=== PATIENT | female | born 1955 | race Caucasian/White ===

== ENCOUNTER 2022-07-12 08:00 | Outpatient (RCR) | payer MEDICAID, SELFPAY ==
[2022-07-04] MEDS: Normal Saline Flush 10 ML SYR IVP (08:55)
[2022-07-04 09:01] LABS: Abs Immature Grans 0.04 10^3/uL (0.0-0.06); Absolute Basophil Count 0.04 10^3/uL (0.0-0.2); Absolute Eosinophil Count 0.31 10^3/uL (0.0-0.7); Absolute Lymphocyte Count 1.49 10^3/uL (1.2-3.4); Absolute Monocyte Count 1.03 10^3/uL (0.1-0.8); Absolute Neutrophil Count 7.44 10^3/uL (1.2-6.7); Basophils % 0.4; HCT 31.2 % (36.0-46.0); HGB 10.3 g/dL (11.2-15.7); Immature Grans % 0.4; Lymphocytes % 14.4; MCH 34.1 pg (27.0-33.0); MCV 103 fL (80-95); MPV 10.5 fL (8.0-11.0); Neutrophils % 71.8; Platelet Count 374 10^3/uL (130-400); RBC 3.02 10^6/uL (3.93-5.22); RDW 13.3 % (11.7-14.6); RDW-SD 51.5 fL; Reticulocyte 2.7 % (0.5-2.4); WBC 10.35 10^3/uL (4.4-10.8)
[2022-07-04 09:31] LABS: Iron 72 ug/dL (50-170); Total Iron Binding Capacity 450 ug/dL (250-450); Transferrin Sat 16 % (15-50)
[2022-07-04 09:43] LABS: ALT 41 U/L (14-59); AST 29 U/L (15-37); Alkaline Phosphatase 164 U/L (46-116); Anion Gap 9.2 mmol/L (3-11); Bilirubin, Total 0.3 mg/dL (0.2-1.0); CO2 25.8 mmol/L (21.0-32.0); CREATININE 1.2 mg/dL (0.55-1.02); Calcium 9.5 mg/dL (8.5-10.1); Chloride 98 mmol/L (98-107); Estimated GFR 49.92 (mL/min/1.73m2); Glucose 103 mg/dL (74-106); Magnesium 2.4 mg/dL (1.8-2.4); Potassium 4.7 mmol/L (3.5-5.1); Sodium 133 mmol/L (136-145); Vitamin B12 592 pg/mL (193-986)
[2022-07-04 09:56] LABS: Folate > 20.0 ng/mL (8.6-20.0)
[2022-07-04 09:57] LABS: BUN 89 mg/dL (7-18)
[2022-07-12] MEDS: Normal Saline Flush 10 ML SYR IVP (08:27)
[2022-07-12 08:34] LABS: Abs Immature Grans 0.02 10^3/uL (0.0-0.06); Absolute Basophil Count 0.05 10^3/uL (0.0-0.2); Absolute Eosinophil Count 0.35 10^3/uL (0.0-0.7); Absolute Lymphocyte Count 1.27 10^3/uL (1.2-3.4); Absolute Monocyte Count 0.84 10^3/uL (0.1-0.8); Absolute Neutrophil Count 7.33 10^3/uL (1.2-6.7); Basophils % 0.5; Eosinophils % 3.5; HCT 29.4 % (36.0-46.0); HGB 9.7 g/dL (11.2-15.7); Immature Grans % 0.2; Lymphocytes % 12.9; MCH 33.8 pg (27.0-33.0); MCV 102 fL (80-95); MPV 9.8 fL (8.0-11.0); Monocytes % 8.5; Neutrophils % 74.4; Platelet Count 341 10^3/uL (130-400); RBC 2.87 10^6/uL (3.93-5.22); RDW 13.5 % (11.7-14.6); RDW-SD 50.1 fL; WBC 9.86 10^3/uL (4.4-10.8)
[2022-07-12 08:49] LABS: ALT 26 U/L (14-59); AST 22 U/L (15-37); Albumin 3.5 g/dL (3.4-5.0); Alkaline Phosphatase 151 U/L (46-116); Anion Gap 11.3 mmol/L (3-11); BUN 54 mg/dL (7-18); Bilirubin, Total 0.2 mg/dL (0.2-1.0); CO2 23.7 mmol/L (21.0-32.0); CREATININE 1.4 mg/dL (0.55-1.02); Calcium 8.9 mg/dL (8.5-10.1); Chloride 100 mmol/L (98-107); Estimated GFR 41.49 (mL/min/1.73m2); Glucose 105 mg/dL (74-106); Magnesium 2.2 mg/dL (1.8-2.4); Potassium 4.5 mmol/L (3.5-5.1); Sodium 135 mmol/L (136-145); Total Protein 7.1 g/dL (6.4-8.2)
== END 2022-07-13 23:59 | disposition home or self-care (01) ==
LOC: INF 08:00
PROVIDERS: PCP Registered Nurse; Visit Provider Internal Medicine Hematology & Oncology
DX: Z45.2 Encounter for adjustment and management of vascular access device (principal); C02.9 Malignant neoplasm of tongue, unspecified; D53.9 Nutritional anemia, unspecified
CPT/HCPCS: 36591; 80053; 82607; 82746; 83540; 83550; 83735; 85025; 85045

== ENCOUNTER 2022-08-09 03:24 | Outpatient (RCR) | payer MEDICAID, SELFPAY ==
[2022-07-18] MEDS: Normal Saline Flush 10 ML SYR IVP (09:28)
[2022-07-18 09:39] LABS: Abs Immature Grans 0.03 10^3/uL (0.0-0.06); Absolute Basophil Count 0.03 10^3/uL (0.0-0.2); Absolute Eosinophil Count 0.19 10^3/uL (0.0-0.7); Absolute Lymphocyte Count 0.65 10^3/uL (1.2-3.4); Absolute Monocyte Count 0.44 10^3/uL (0.1-0.8); Absolute Neutrophil Count 8.14 10^3/uL (1.2-6.7); Basophils % 0.3; HCT 29.1 % (36.0-46.0); HGB 9.6 g/dL (11.2-15.7); Immature Grans % 0.3; Lymphocytes % 6.9; MCH 34.3 pg (27.0-33.0); MCV 104 fL (80-95); MPV 9.7 fL (8.0-11.0); Monocytes % 4.6; Neutrophils % 85.9; Platelet Count 330 10^3/uL (130-400); WBC 9.48 10^3/uL (4.4-10.8)
[2022-07-18 09:56] LABS: ALT 31 U/L (14-59); AST 31 U/L (15-37); Albumin 3.3 g/dL (3.4-5.0); Alkaline Phosphatase 186 U/L (46-116); Anion Gap 7.5 mmol/L (3-11); BUN 50 mg/dL (7-18); Bilirubin, Total 0.3 mg/dL (0.2-1.0); CO2 26.5 mmol/L (21.0-32.0); CREATININE 1.5 mg/dL (0.55-1.02); Calcium 8.9 mg/dL (8.5-10.1); Chloride 103 mmol/L (98-107); Glucose 167 mg/dL (74-106); Magnesium 2.2 mg/dL (1.8-2.4); Potassium 4.5 mmol/L (3.5-5.1); Sodium 137 mmol/L (136-145); Total Protein 6.9 g/dL (6.4-8.2)
[2022-07-25 09:28] LABS: Abs Immature Grans 0.01 10^3/uL (0.0-0.06); Absolute Basophil Count 0.04 10^3/uL (0.0-0.2); Absolute Eosinophil Count 0.15 10^3/uL (0.0-0.7); Absolute Lymphocyte Count 0.67 10^3/uL (1.2-3.4); Absolute Monocyte Count 0.34 10^3/uL (0.1-0.8); Basophils % 0.8; Eosinophils % 3.2; HCT 28.3 % (36.0-46.0); HGB 9.2 g/dL (11.2-15.7); Immature Grans % 0.2; Lymphocytes % 14.2; MCHC 32.5 % (32.0-36.0); MCV 108 fL (80-95); MPV 9.8 fL (8.0-11.0); Monocytes % 7.2; Neutrophils % 74.4; Platelet Count 278 10^3/uL (130-400); RBC 2.63 10^6/uL (3.93-5.22); RDW 14.7 % (11.7-14.6); RDW-SD 55.8 fL; WBC 4.71 10^3/uL (4.4-10.8)
[2022-07-25] MEDS: Normal Saline Flush 10 ML SYR IVP (09:31)
[2022-07-25 09:44] LABS: ALT 24 U/L (14-59); AST 22 U/L (15-37); Albumin 3.2 g/dL (3.4-5.0); Alkaline Phosphatase 172 U/L (46-116); Anion Gap 8.7 mmol/L (3-11); BUN 47 mg/dL (7-18); Bilirubin, Total 0.4 mg/dL (0.2-1.0); CO2 26.3 mmol/L (21.0-32.0); CREATININE 1.2 mg/dL (0.55-1.02); Calcium 8.8 mg/dL (8.5-10.1); Chloride 104 mmol/L (98-107); Estimated GFR 49.92 (mL/min/1.73m2); Glucose 143 mg/dL (74-106); Magnesium 2.2 mg/dL (1.8-2.4); Potassium 4.4 mmol/L (3.5-5.1); Sodium 139 mmol/L (136-145); Total Protein 6.6 g/dL (6.4-8.2)
[2022-08-02] MEDS: Normal Saline Flush 10 ML SYR IVP (11:11)
[2022-08-02 11:19] LABS: Abs Immature Grans 0.02 10^3/uL (0.0-0.06); Absolute Basophil Count 0.03 10^3/uL (0.0-0.2); Absolute Eosinophil Count 0.11 10^3/uL (0.0-0.7); Absolute Lymphocyte Count 0.57 10^3/uL (1.2-3.4); Absolute Neutrophil Count 3.41 10^3/uL (1.2-6.7); Basophils % 0.6; Eosinophils % 2.4; HCT 27.9 % (36.0-46.0); HGB 9.4 g/dL (11.2-15.7); Immature Grans % 0.4; Lymphocytes % 12.3; MCH 35.2 pg (27.0-33.0); MCHC 33.7 % (32.0-36.0); MCV 105 fL (80-95); MPV 9.8 fL (8.0-11.0); Monocytes % 10.8; Neutrophils % 73.5; Platelet Count 245 10^3/uL (130-400); RBC 2.67 10^6/uL (3.93-5.22); RDW 15.4 % (11.7-14.6); RDW-SD 57.8 fL; WBC 4.64 10^3/uL (4.4-10.8)
[2022-08-02 11:35] LABS: ALT 21 U/L (14-59); AST 21 U/L (15-37); Albumin 3.3 g/dL (3.4-5.0); Alkaline Phosphatase 141 U/L (46-116); Anion Gap 6.2 mmol/L (3-11); BUN 41 mg/dL (7-18); Bilirubin, Total 0.3 mg/dL (0.2-1.0); CO2 27.8 mmol/L (21.0-32.0); CREATININE 1.2 mg/dL (0.55-1.02); Chloride 104 mmol/L (98-107); Estimated GFR 49.92 (mL/min/1.73m2); Glucose 113 mg/dL (74-106); Magnesium 2.2 mg/dL (1.8-2.4); Potassium 4.8 mmol/L (3.5-5.1); Sodium 138 mmol/L (136-145); Total Protein 6.9 g/dL (6.4-8.2)
[2022-08-09] MEDS: Normal Saline Flush 10 ML SYR IVP (08:48)
[2022-08-09 08:53] LABS: Abs Immature Grans 0.01 10^3/uL (0.0-0.06); Absolute Basophil Count 0.04 10^3/uL (0.0-0.2); Absolute Eosinophil Count 0.13 10^3/uL (0.0-0.7); Absolute Lymphocyte Count 0.42 10^3/uL (1.2-3.4); Absolute Monocyte Count 0.41 10^3/uL (0.1-0.8); Absolute Neutrophil Count 2.94 10^3/uL (1.2-6.7); Eosinophils % 3.3; HCT 24.8 % (36.0-46.0); HGB 7.9 g/dL (11.2-15.7); Immature Grans % 0.3; Lymphocytes % 10.6; MCH 33.9 pg (27.0-33.0); MCHC 31.9 % (32.0-36.0); MCV 106 fL (80-95); MPV 9.7 fL (8.0-11.0); Monocytes % 10.4; Neutrophils % 74.4; Platelet Count 185 10^3/uL (130-400); RBC 2.33 10^6/uL (3.93-5.22); RDW 16.4 % (11.7-14.6); RDW-SD 62.1 fL; WBC 3.95 10^3/uL (4.4-10.8)
[2022-08-09 09:08] LABS: ALT 20 U/L (14-59); AST 20 U/L (15-37); Albumin 3.3 g/dL (3.4-5.0); Alkaline Phosphatase 145 U/L (46-116); Anion Gap 7.7 mmol/L (3-11); BUN 50 mg/dL (7-18); Bilirubin, Total 0.3 mg/dL (0.2-1.0); CO2 27.3 mmol/L (21.0-32.0); CREATININE 1.2 mg/dL (0.55-1.02); Calcium 8.8 mg/dL (8.5-10.1); Chloride 104 mmol/L (98-107); Estimated GFR 49.92 (mL/min/1.73m2); Glucose 143 mg/dL (74-106); Magnesium 2.3 mg/dL (1.8-2.4); Potassium 4.5 mmol/L (3.5-5.1); Sodium 139 mmol/L (136-145); Total Protein 6.8 g/dL (6.4-8.2)
== END 2022-08-13 23:59 | disposition home or self-care (01) ==
LOC: INF 03:24
PROVIDERS: PCP Registered Nurse; Visit Provider Internal Medicine Hematology & Oncology
DX: C02.9 Malignant neoplasm of tongue, unspecified (principal); Z45.2 Encounter for adjustment and management of vascular access device
CPT/HCPCS: 36591; 80053; 83735; 85025

== ENCOUNTER 2022-09-12 02:40 | Outpatient (RCR) | payer MEDICAID, SELFPAY ==
[2022-08-19] MEDS: Normal Saline Flush 10 ML SYR IVP (08:47)
[2022-08-19 09:07] LABS: Abs Immature Grans 0.01 10^3/uL (0.0-0.06); Absolute Basophil Count 0.02 10^3/uL (0.0-0.2); Absolute Eosinophil Count 0.07 10^3/uL (0.0-0.7); Absolute Lymphocyte Count 0.42 10^3/uL (1.2-3.4); Absolute Neutrophil Count 1.61 10^3/uL (1.2-6.7); Basophils % 0.7; Eosinophils % 2.4; HCT 22.3 % (36.0-46.0); HGB 7.3 g/dL (11.2-15.7); Immature Grans % 0.3; Lymphocytes % 14.3; MCH 34.9 pg (27.0-33.0); MCHC 32.7 % (32.0-36.0); MCV 107 fL (80-95); MPV 10.1 fL (8.0-11.0); Monocytes % 27.3; RBC 2.09 10^6/uL (3.93-5.22); RDW 17.2 % (11.7-14.6); RDW-SD 66.2 fL; WBC 2.93 10^3/uL (4.4-10.8)
[2022-08-19 09:24] LABS: ALT 43 U/L (14-59); AST 53 U/L (15-37); Albumin 2.8 g/dL (3.4-5.0); Alkaline Phosphatase 244 U/L (46-116); Anion Gap 7.4 mmol/L (3-11); BUN 46 mg/dL (7-18); Bilirubin, Total 0.4 mg/dL (0.2-1.0); CO2 27.6 mmol/L (21.0-32.0); CREATININE 1.5 mg/dL (0.55-1.02); Calcium 8.9 mg/dL (8.5-10.1); Chloride 101 mmol/L (98-107); Glucose 146 mg/dL (74-106); Magnesium 2.4 mg/dL (1.8-2.4); Potassium 4.6 mmol/L (3.5-5.1); Sodium 136 mmol/L (136-145); Total Protein 7.1 g/dL (6.4-8.2)
[2022-08-19 09:26] LABS: Basophilic Stippling Present; Diff Comment Diff Reviewed; Hypochromasia 2+; Macrocytosis 2+; Platelet Count 291 10^3/uL (130-400)
[2022-08-22] MEDS: Normal Saline Flush 10 ML SYR IVP (09:00)
[2022-08-22 09:16] LABS: Abs Immature Grans 0.05 10^3/uL (0.0-0.06); Absolute Basophil Count 0.02 10^3/uL (0.0-0.2); Absolute Eosinophil Count 0.07 10^3/uL (0.0-0.7); Absolute Lymphocyte Count 0.44 10^3/uL (1.2-3.4); Absolute Monocyte Count 0.57 10^3/uL (0.1-0.8); Absolute Neutrophil Count 2.25 10^3/uL (1.2-6.7); Basophils % 0.6; Eosinophils % 2.1; HCT 23.1 % (36.0-46.0); HGB 7.7 g/dL (11.2-15.7); Immature Grans % 1.5; Lymphocytes % 12.9; MCH 34.5 pg (27.0-33.0); MCHC 33.3 % (32.0-36.0); MCV 104 fL (80-95); MPV 9.8 fL (8.0-11.0); Monocytes % 16.8; Neutrophils % 66.1; Platelet Count 392 10^3/uL (130-400); RBC 2.23 10^6/uL (3.93-5.22); RDW-SD 63.7 fL
[2022-08-22 09:36] LABS: ALT 38 U/L (14-59); AST 32 U/L (15-37); Albumin 2.7 g/dL (3.4-5.0); Alkaline Phosphatase 265 U/L (46-116); Anion Gap 10.6 mmol/L (3-11); BUN 38 mg/dL (7-18); Bilirubin, Total 0.3 mg/dL (0.2-1.0); CO2 27.4 mmol/L (21.0-32.0); CREATININE 1.3 mg/dL (0.55-1.02); Calcium 9.1 mg/dL (8.5-10.1); Chloride 98 mmol/L (98-107); Estimated GFR 45.35 (mL/min/1.73m2); Glucose 109 mg/dL (74-106); Potassium 4.4 mmol/L (3.5-5.1); Sodium 136 mmol/L (136-145); Total Protein 7.2 g/dL (6.4-8.2)
[2022-08-25] MEDS: Normal Saline Flush 10 ML SYR IVP (12:48)
[2022-08-25 12:53] LABS: Abs Immature Grans 0.03 10^3/uL (0.0-0.06); Absolute Basophil Count 0.01 10^3/uL (0.0-0.2); Absolute Lymphocyte Count 0.48 10^3/uL (1.2-3.4); Absolute Monocyte Count 0.68 10^3/uL (0.1-0.8); Absolute Neutrophil Count 2.63 10^3/uL (1.2-6.7); Basophils % 0.3; Eosinophils % 2.5; HCT 23.3 % (36.0-46.0); HGB 7.7 g/dL (11.2-15.7); Immature Grans % 0.8; Lymphocytes % 12.2; MCH 35.2 pg (27.0-33.0); MCV 106 fL (80-95); MPV 9.5 fL (8.0-11.0); Monocytes % 17.3; Neutrophils % 66.9; Platelet Count 382 10^3/uL (130-400); RBC 2.19 10^6/uL (3.93-5.22); RDW 17.5 % (11.7-14.6); RDW-SD 66.8 fL; WBC 3.93 10^3/uL (4.4-10.8)
[2022-08-25 13:08] LABS: ALT 25 U/L (14-59); AST 20 U/L (15-37); Albumin 2.6 g/dL (3.4-5.0); Alkaline Phosphatase 260 U/L (46-116); Anion Gap 5.6 mmol/L (3-11); BUN 36 mg/dL (7-18); Bilirubin, Total 0.2 mg/dL (0.2-1.0); CO2 29.4 mmol/L (21.0-32.0); CREATININE 1.7 mg/dL (0.55-1.02); Calcium 8.7 mg/dL (8.5-10.1); Chloride 99 mmol/L (98-107); Estimated GFR 32.87 (mL/min/1.73m2); Glucose 119 mg/dL (74-106); Potassium 4.1 mmol/L (3.5-5.1); Sodium 134 mmol/L (136-145); Total Protein 6.8 g/dL (6.4-8.2)
[2022-09-12] MEDS: Normal Saline Flush 10 ML SYR IVP (13:40)
[2022-09-12 14:12] LABS: Abs Immature Grans 0.02 10^3/uL (0.0-0.06); Absolute Basophil Count 0.05 10^3/uL (0.0-0.2); Absolute Eosinophil Count 0.18 10^3/uL (0.0-0.7); Absolute Lymphocyte Count 0.84 10^3/uL (1.2-3.4); Absolute Monocyte Count 0.73 10^3/uL (0.1-0.8); Absolute Neutrophil Count 5.53 10^3/uL (1.2-6.7); Basophils % 0.7; Eosinophils % 2.4; HCT 29.9 % (36.0-46.0); HGB 9.7 g/dL (11.2-15.7); Immature Grans % 0.3; Lymphocytes % 11.4; MCH 35.9 pg (27.0-33.0); MCHC 32.4 % (32.0-36.0); MCV 111 fL (80-95); MPV 10.1 fL (8.0-11.0); Monocytes % 9.9; Neutrophils % 75.3; RDW 18.2 % (11.7-14.6); RDW-SD 74.4 fL; WBC 7.35 10^3/uL (4.4-10.8)
[2022-09-12 14:24] LABS: Diff Comment Diff Reviewed; Macrocytosis 2+; Platelet Count 384 10^3/uL (130-400); Polychromasia Present
[2022-09-12 14:26] LABS: ALT 18 U/L (14-59); AST 23 U/L (15-37); Albumin 3.3 g/dL (3.4-5.0); Alkaline Phosphatase 155 U/L (46-116); Anion Gap 7.5 mmol/L (3-11); BUN 34 mg/dL (7-18); Bilirubin, Total 0.3 mg/dL (0.2-1.0); CO2 29.5 mmol/L (21.0-32.0); CREATININE 1.3 mg/dL (0.55-1.02); Calcium 9.6 mg/dL (8.5-10.1); Chloride 103 mmol/L (98-107); Estimated GFR 45.35 (mL/min/1.73m2); Glucose 122 mg/dL (74-106); Magnesium 2.1 mg/dL (1.8-2.4); Potassium 4.2 mmol/L (3.5-5.1); Sodium 140 mmol/L (136-145); Total Protein 7.2 g/dL (6.4-8.2)
== END 2022-09-13 23:59 | disposition home or self-care (01) ==
LOC: INF 02:40
PROVIDERS: PCP Registered Nurse; Visit Provider Internal Medicine Hematology & Oncology
DX: C02.9 Malignant neoplasm of tongue, unspecified (principal); Z45.2 Encounter for adjustment and management of vascular access device
CPT/HCPCS: 36591; 80053; 86850; 86900; 86901; 83735; 85025

== ENCOUNTER 2022-09-27 00:43 | Outpatient (CLI) | payer MEDICARE, MEDICAID, SELFPAY ==
--- NOTE | 2022-09-27 | DI.RAD_ITS ---
Exam(s) RF MODIFIED SPEECH BA SWALLOW TECHNIQUE: Modified barium swallow was performed in conjunction with speech pathology. CONTRAST MATERIAL: Oral barium Oral water soluble contrast was administered. COMPARISON: No exams were available for comparison FINDINGS: Fluoroscopy provided during modified barium swallow performed by the speech therapist. Please refer to that report for details. IMPRESSION: Total fluoroscopy time was 109 seconds. RADIATION DOSE DELIVERED: garland Christiansen=150 mGy
[2022-09-27] MEDS: Barium Sulfate Oral Paste 40% W/V 230 ML TUBE 10 ML PO (14:30)
[2022-09-27] MEDS: Barium Sulfate 81% w/w for Oral Suspension 148 GM BTL 70 GM PO (14:31)
[2022-09-27] MEDS: Barium Sulfate 40% W/V 240 ML BTL 10 ML PO (14:38)
--- NOTE | 2022-09-27 14:45 | ST.MBS ---
Date of Service Date of service: 09/27/22 Time of Service: 14:00 Modified Barium Swallow Study Findings: Video fluoroscopic Swallowing Evaluation (VFSE) / Modified Barium Swallow Study (MBSS) Speech Language Pathology Report Patient referred for VFSE/MBSS from Dr. Aj Garcia MD ([facility]) given oral-pharyngeal dysphagia after H/N surgery and chemoradiation. HPI & Patient report of function: Patient is a 67 year old F s/p R lateral partial glossectomy with FOM resection, marginal mandibulectomy, pec major flap, R MRND for squamous cell carcinoma, who was planned for adjuvent radiotherapy, but found to have regional recurrence on CT when planning for RT, then treatment plan was changed and patient underwent definitive chemoradiation completed 08/19/22. Patient was seen by [facility] ENTERTAINMENT DIRECTOR Radha Millard for clinical swallow evaluation on 09/12/22 and noted with consistent s/sx aspiration to thin liquids on exam. See this report dated 09/12/22 for more details including speech testing. This date patient reports minimal residual oral or neck pain from radiation or surgery, but reports new L head pain radiating down into throat. She is scheduled for CT scan in [place]. She also reports improved swallow function with less coughing in recent weeks. PMHx: Tongue Cancer Anemia Metabolic acidosis CHF History of tobacco use IMPRESSIONS: Moderate-severe chronic oropharyngeal dysphagia in setting of oral reconstructive surgery and adrien-glossectomy, and radiation effects. Swallow safety is impaired; swallow efficiency is impaired. Based on MBSiMP scoring data and measures of oral-pharyngeal movement patient swallow function is quite poor, though functionally she is able to safely tolerate liquids and thick purees fairly safely. Despite minimal hyoid movement, she has relatively preserved pharyngeal stripping wave and UES distension (though some mild hypertrophy is noted). Airway protection for thin liquids is also maintained and she is able to clear majority of liquid bolus from mouth with increased inertia of larger sip sizes (~10ML) and some preserved lingual stripping motion. With small sip sizes, patient relies on posterior head tilt for A/P transit and oral phase is much more labored and inefficient. Aspiration occurred with thin liquids, but only when taken as liquid wash to clear puree residue. It appears that the presence of prior vallecular residue alters liquid bolus flow in such a way that makes laryngeal penetration/aspiration occur upon swallow initiation. In addition to the above description, swallow function also characterized by mild delayed pharyngeal onset, reduced epiglottic inversion, poor tongue base retraction, and oral as well as vallecular residue especially as viscosity increases. When drinking liquids with baseline feeding behaviors in place, she appears with spontaneous small chin tuck posture which may also improve her airway protection with liquids. Mild hypertrophy noted of CP but does not appear to impeded bolus flow - minimal pyriform sinus residue. ? Clinical Indicator(s) of Prandial/Postprandial Aspiration include: Cough Patient appears to be at moderate risk for potential aspiration PNA and/or pulmonary compromise and moderate risk for malnutrition, moderate risk for dehydration. Diet modification is indicated; non-oral nutrition is indicated, but patient is safe to begin increasing PO intake at home of liquids and slick purees or very soft solids with added sauces/gravies. Swallow prognosis is fair given: Positive prognostic factors: Motivation, Cognitive status, Effectiveness of trialed compensatory strategies, Negative prognostic factors: Severity, Relative dose of Chemotherapy and/or radiation treatment, Surgical/anatomical factors, and pending patient/caregiver training in risk management as outlined, including use of compensatory strategies. Patient appears to be a good candidate for behavioral swallow rehabilitation. Patient was encouraged to increase oral intake as tolerated for liquids and slick purees or very soft/moist solids per the following recommendations for risk management: RECOMMENDATIONS: Diet Texture Recommendation:? IDDSI LEVEL SOLIDS 7-Regular/Easy to Chew Solids (soft mashable with added sauce/gravy) 5-Minced & Moist Solids 4-Pureed Solids LIQUIDS 0-Thin Liquids Please see further details at?www.iddsi.orghttp://www.iddsi.org/ MEDICATIONS Crushed, as able with 4-Puree or via enteral feeding Do not alter medications (e.g., cut)? without advice from your MD or pharmacist. Risk Management Strategies:? Behavioral reflux precautions, including upright position during + 90 mins after meals. Small bites, approx [id number] Multiple swallows per bolus to encourage clearance of pharyngeal stasis/residue Avoid use of liquid wash to clear residue unless multip reswallow attempts have been completed, and if using liquid wash, small sip size should be maintained. Tuck chin slightly with liquids. (Patient appears to complete this spontaneously at baseline. Control risk factors for aspiration pneumonia via (a) thorough oral hygiene & (b) maintaining physical mobility as tolerated PLAN: Therapy: Recommend subsequent outpatient session with ENTERTAINMENT DIRECTOR to review results of today's exam and develop treatment plan as appropriate. May consider the following: Targeted Oropharyngeal Exercise per treating ENTERTAINMENT DIRECTOR, Further Compensatory Strategy Training, Further Training/Education in Risk Management, Further Counseling re: Options for maintaining quality of life in context of dysphagia presentation. Goals: Defer to treating clinician Follow-up exam: Recommend repeat VFSE/MBSS PRN per treating clinician. ----- OBJECTIVE Videofluoroscopic Swallow Evaluation (VFSE/MBSS) was conducted in the lateral projection by Speech-Language Pathologist, in collaboration with Radiologist, to evaluate oropharyngeal swallow function. Anatomic view under fluoroscopy: Other noting evidence of oral and pharyngeal reconstruction. Altered epiglottic form. PO Barium Contrast Trials Oral barium water-soluble contrast was administered as follows: IDDSI Level 0 Varibar thin liquid (40% w/v) IDDSI Level 2 Varibar nectar thick/mildly thick liquid (40% w/v) IDDSI Level 4 Varibar pudding/pureed/extremely thick (40% w/v) Solid trials not initiated due to persistent pharyngeal stasis noted with puree texture. MBSImP Component Scores: COMPONENT Scale SCORE 1 Lip closure (0-4) 2 Resulted in escape from interlabial space or lateral juncture, but no extension beyond vermilion border 2 Hold Position (0-3) 1 Allowed bolus escape to lateral buccal cavity/floor of mouth 3 Bolus Preparation (0-4) NA 4 Bolus Transport (0-4) 4 Yielded only minimal to no tongue motion 5 Oral Residue (0-4) 3 Was the majority of bolus remaining 6 Swallow Initiation (0-4) 3 Occurred when the bolus head was in the pyriform sinuses 7 Soft Palate Elevation (0-4) 0 Resulted in no bolus between soft palate and the pharyngeal wall 8 Laryngeal Elevation (0-3) 1 Was decreased with partial superior movement of thyroid cartilage/partial approximation of arytenoids to epiglottic petiole 9 Anterior Hyoid Motion (0-2) 2 Demonstrated no anterior movement 10 Epiglottic Movement (0-2) 1 Resulted in partial inversion 11 Laryngeal Closure (0-2) 1 Was incomplete with narrow a column of air/contrast in laryngeal vestibule 12 Pharyngeal Stripping Wave (0-2) 1 Was present, but diminished 13 Pharyngeal Contraction (0-3) NA 14 PES Opening (0-3) 1 Demonstrated partial distension/partial duration, with partial obstruction of flow 15 Tongue Base Retraction (0-4) 0 Allowed no contrast between the tongue base and posterior pharyngeal wall 16 Pharyngeal Residue (0-4) 2 Was a collection of residue within or on pharyngeal structures 17 Esophageal Clearance (0-4) NA Results: COMPONENT Scale SCORE 1 Oral Score (0-18) 11 2 Pharyngeal Score (0-29) 9 3 Esophageal Score (0-4) 0 Dysphagia Outcome and Severity Scale: COMPONENT Scale SCORE 1 LEVEL (1-7) 2 Nonoral Nutrition Necessary - Moderate-severe dysphagia; Maximum assistance or use of strategies with partial PO only (tolerates at least 1 consistency safely with total use of strategies) Penetration-Aspiration Scale: COMPONENT Scale SCORE 1 Thin liquid (1-8) 7 Contrast entered the airway, passed below the vocal folds, and was not ejected from the trachea despite effort. 2 [place] thick (1-8) 1 Contrast did not enter the airway 3 Honey thick (1-8) NA 4 Pudding thick (1-8) 1 Contrast did not enter the airway 5 Cookie (1-8) NA Functional Oral Intake Scale: COMPONENT Scale SCORE 1 Pre-Study (1-7) 2 Tube dependent with minimal/inconsistent oral intake 2 Post-Study (1-7) 2 Tube dependent with minimal/inconsistent oral intake, but likely capable of score of 3 at this time. DIGEST: COMPONENT Scale SCORE 1 Thin Max PAS (1-8) 7 Contrast entered the airway, passed below the vocal folds, and was not ejected from the trachea despite effort. 2 [place] Max PAS (1-8) 1 Contrast did not enter the airway 3 Honey Max PAS (1-8) NA 4 Liquid Max PAS (1-8) 7 Maximum PAS Score over all liquid trials 5 Liquid Max Residue (0-3) NA 6 Pudding Max PAS (1-8) 1 Contrast did not enter the airway 7 Pudding Max Residue (0-3) 2 50 - 90% 8 Cracker Max PAS (1-8) NA 9 Cracker Max Residue (0-3) NA 10 Frequency if PAS >= 3 (0-3) 2 Intermittent (under 50% of trials on a single consistency) 11 Amount if PAS >= 5 (0-1) 0 Not gross Results: COMPONENT Scale SCORE 1 SAFETY GRADE (0-4) 2 Safety grade for swallowing based on patterns of aspiration or laryngeal penetration 2 EFFICIENCY GRADE (0-4) 3 Efficiency grade of swallowing based on patterns of pharyngeal residue 3 DIGEST (0-4) 3 Severity grade of pharyngeal dysphagia: 0 - Normal, 1 - Mild, 2 - Moderate, 3 - Severe, 4 - Life threatening 4 Max Exam PAS (1-8) 7 Maximum PAS Score over all bolus trials 5 Max Exam Residue (0-3) 2 Maximum Exam Residue over all bolus trials Trialed Compensatory Strategies & Outcome: Maneuvers Successful (+) Unsuccessful (-) Postures Successful (+) Unsuccessful (-) 3 second Preparatory Set ? - Chin Tuck Posture? + Cough ? Posterior Head tilt?? + for small liquid bolus Reflexive? ? - ? ? Cued? Throat Clear ? Head Tilt to?Reflexive? Left? ? ?Cued? Right? ? Saliva swallow + toribio. for puree Head Turn/Rotate to? ? Supraglottic Swallow ? Left? ? Super-supraglottic Swallow ? Right? ? Bolus Modifications Successful (+) Unsuccessful (-) Delivery/Alternating Consistencies ? Follow with Liquid Wash - ? Follow with Solid Bolus? Delivery/Via Straw? - Reduced Volume? - Reduced Rate of Intake? ? Increased Viscosity? increases residue Other:?? ? Thank you for allowing us to take part in this patient's care. Please feel free to contact the [facility] Speech Language Pathology Department with any questions/concerns. Daisy Shah MS, CCC-ENTERTAINMENT DIRECTOR [facility] Speech Language Pathology [email or web address] Coding CPT Codes MOTION FLUOROSCOPY/SWALLOW - [id number] ([id number])
== END 2022-09-27 01:03 ==
PROVIDERS: PCP Registered Nurse; Visit Provider Internal Medicine Hematology & Oncology
DX: R13.12 Dysphagia, oropharyngeal phase (principal)
CPT/HCPCS: 92611; 74221

== ENCOUNTER 2022-10-03 02:29 | Outpatient (RCR) | payer MEDICARE, MEDICAID, SELFPAY ==
[2022-10-03] MEDS: Normal Saline Flush 10 ML SYR IVP (12:28)
[2022-10-03] MEDS: Heparin 500 UNITS/5 ML SYRINGE IV (12:29)
[2022-10-03 12:32] LABS: Abs Immature Grans 0.03 10^3/uL (0.0-0.06); Absolute Basophil Count 0.05 10^3/uL (0.0-0.2); Absolute Eosinophil Count 0.35 10^3/uL (0.0-0.7); Absolute Lymphocyte Count 1.01 10^3/uL (1.2-3.4); Absolute Monocyte Count 1.07 10^3/uL (0.1-0.8); Absolute Neutrophil Count 5.94 10^3/uL (1.2-6.7); Basophils % 0.6; Eosinophils % 4.1; HCT 29.3 % (36.0-46.0); HGB 9.2 g/dL (11.2-15.7); Immature Grans % 0.4; MCH 34.2 pg (27.0-33.0); MCHC 31.4 % (32.0-36.0); MCV 109 fL (80-95); MPV 9.9 fL (8.0-11.0); Monocytes % 12.7; Neutrophils % 70.2; Platelet Count 329 10^3/uL (130-400); RBC 2.69 10^6/uL (3.93-5.22); RDW 14.5 % (11.7-14.6); RDW-SD 58.4 fL; WBC 8.45 10^3/uL (4.4-10.8)
[2022-10-03 12:49] LABS: ALT 38 U/L (14-59); AST 35 U/L (15-37); Albumin 3.3 g/dL (3.4-5.0); Alkaline Phosphatase 162 U/L (46-116); Anion Gap 9.2 mmol/L (3-11); BUN 43 mg/dL (7-18); Bilirubin, Total 0.3 mg/dL (0.2-1.0); CO2 25.8 mmol/L (21.0-32.0); Calcium 9.5 mg/dL (8.5-10.1); Chloride 102 mmol/L (98-107); Estimated GFR 62.13 (mL/min/1.73m2); Glucose 100 mg/dL (74-106); Sodium 137 mmol/L (136-145); Total Protein 7.3 g/dL (6.4-8.2)
== END 2022-10-11 23:59 | disposition home or self-care (01) ==
LOC: INF 02:29
PROVIDERS: PCP Registered Nurse; Visit Provider Internal Medicine Hematology & Oncology
DX: Z45.2 Encounter for adjustment and management of vascular access device (principal); C02.9 Malignant neoplasm of tongue, unspecified
CPT/HCPCS: 36591; 80053; 85025

== ENCOUNTER 2022-11-21 00:57 | Outpatient (RCR) | payer MEDICARE, MEDICAID, SELFPAY ==
[2022-11-21] MEDS: Normal Saline Flush 10 ML SYR IVP (09:23)
[2022-11-21 09:50] LABS: Abs Immature Grans 0.02 10^3/uL (0.0-0.06); Absolute Basophil Count 0.05 10^3/uL (0.0-0.2); Absolute Eosinophil Count 0.32 10^3/uL (0.0-0.7); Absolute Monocyte Count 0.74 10^3/uL (0.1-0.8); Absolute Neutrophil Count 7.74 10^3/uL (1.2-6.7); Basophils % 0.5; Eosinophils % 3.3; HGB 10.5 g/dL (11.2-15.7); Immature Grans % 0.2; Lymphocytes % 9.2; MCHC 32.8 % (32.0-36.0); MCV 101 fL (80-95); Monocytes % 7.6; Neutrophils % 79.2; Platelet Count 374 10^3/uL (130-400); RBC 3.18 10^6/uL (3.93-5.22); RDW 14.6 % (11.7-14.6); RDW-SD 53.7 fL; WBC 9.77 10^3/uL (4.4-10.8)
[2022-11-21 10:15] LABS: ALT 21 U/L (14-59); AST 23 U/L (15-37); Albumin 3.3 g/dL (3.4-5.0); Alkaline Phosphatase 150 U/L (46-116); Anion Gap 7.3 mmol/L (3-11); BUN 43 mg/dL (7-18); Bilirubin, Total 0.3 mg/dL (0.2-1.0); CO2 28.7 mmol/L (21.0-32.0); CREATININE 1.2 mg/dL (0.55-1.02); Calcium 9.2 mg/dL (8.5-10.1); Chloride 101 mmol/L (98-107); Estimated GFR 49.92 (mL/min/1.73m2); Glucose 96 mg/dL (74-106); Potassium 4.4 mmol/L (3.5-5.1); Sodium 137 mmol/L (136-145); TSH 48.27 uIU/mL (0.36-3.74); Total Protein 7.2 g/dL (6.4-8.2)
== END 2022-12-11 23:59 | disposition home or self-care (01) ==
LOC: INF 00:57
PROVIDERS: PCP Registered Nurse; Visit Provider Internal Medicine Hematology & Oncology
DX: Z45.2 Encounter for adjustment and management of vascular access device (principal); C02.9 Malignant neoplasm of tongue, unspecified; Z79.899 Other long term (current) drug therapy
CPT/HCPCS: 36591; 80053; 84439; 84443; 85025

== ENCOUNTER 2023-01-07 00:21 | Outpatient (RCR) | payer MEDICARE, MEDICAID, SELFPAY ==
[2022-12-13] MEDS: Normal Saline Flush 10 ML SYR IVP (09:17)
[2022-12-13 09:32] LABS: Abs Immature Grans 0.04 10^3/uL (0.0-0.06); Absolute Basophil Count 0.04 10^3/uL (0.0-0.2); Absolute Eosinophil Count 0.15 10^3/uL (0.0-0.7); Absolute Lymphocyte Count 0.73 10^3/uL (1.2-3.4); Absolute Monocyte Count 0.69 10^3/uL (0.1-0.8); Basophils % 0.8; Eosinophils % 2.9; HCT 27.9 % (36.0-46.0); HGB 8.9 g/dL (11.2-15.7); Immature Grans % 0.8; Lymphocytes % 14.2; MCHC 31.9 % (32.0-36.0); MCV 100 fL (80-95); MPV 10.2 fL (8.0-11.0); Monocytes % 13.4; Neutrophils % 67.9; Platelet Count 202 10^3/uL (130-400); RBC 2.78 10^6/uL (3.93-5.22); RDW 16.1 % (11.7-14.6); RDW-SD 59.1 fL; WBC 5.15 10^3/uL (4.4-10.8)
[2022-12-13 09:55] LABS: ALT 39 U/L (14-59); AST 30 U/L (15-37); Albumin 3.1 g/dL (3.4-5.0); Alkaline Phosphatase 169 U/L (46-116); Anion Gap 5.1 mmol/L (3-11); BUN 43 mg/dL (7-18); Bilirubin, Total 0.2 mg/dL (0.2-1.0); CO2 31.9 mmol/L (21.0-32.0); Calcium 8.8 mg/dL (8.5-10.1); Chloride 103 mmol/L (98-107); Estimated GFR 62.13 (mL/min/1.73m2); Glucose 104 mg/dL (74-106); Potassium 4.8 mmol/L (3.5-5.1); Sodium 140 mmol/L (136-145); Total Protein 6.8 g/dL (6.4-8.2)
[2022-12-13 10:20] LABS: TSH 117.13 uIU/mL (0.36-3.74)
[2022-12-13 19:40] LABS: FREE T4 0.36 ng/dL (0.76-1.46)
[2022-12-17 11:10] VITALS: BP 78/47; PULSE 85; RESP 16; TEMP 36.5; O2SAT 98
[2022-12-17] MEDS: Normal Saline 500 ML 250 ML IV (11:15)
[2022-12-17] MEDS: Ondansetron 4 MG/2 ML VIAL 8 MG IVP (11:35)
[2022-12-17 13:15] VITALS: BP 108/44
[2022-12-17] MEDS: Normal Saline Flush 10 ML SYR IVP (13:20)
[2022-12-17] MEDS: Heparin 500 UNITS/5 ML SYRINGE IV (13:20)
[2023-01-03 09:43] LABS: Abs Immature Grans 0.03 10^3/uL (0.0-0.06); Absolute Basophil Count 0.07 10^3/uL (0.0-0.2); Absolute Eosinophil Count 0.15 10^3/uL (0.0-0.7); Absolute Monocyte Count 0.56 10^3/uL (0.1-0.8); Absolute Neutrophil Count 2.53 10^3/uL (1.2-6.7); Basophils % 1.7; Eosinophils % 3.7; HCT 28.3 % (36.0-46.0); Immature Grans % 0.7; Lymphocytes % 17.3; MCH 33.2 pg (27.0-33.0); MCHC 31.8 % (32.0-36.0); MCV 104 fL (80-95); MPV 9.4 fL (8.0-11.0); Monocytes % 13.9; Neutrophils % 62.7; Platelet Count 337 10^3/uL (130-400); RBC 2.71 10^6/uL (3.93-5.22); RDW 19.2 % (11.7-14.6); RDW-SD 71.7 fL; WBC 4.04 10^3/uL (4.4-10.8)
[2023-01-03 10:07] LABS: ALT 26 U/L (14-59); AST 31 U/L (15-37); Albumin 3.5 g/dL (3.4-5.0); Alkaline Phosphatase 143 U/L (46-116); BUN 38 mg/dL (7-18); Bilirubin, Total 0.3 mg/dL (0.2-1.0); CREATININE 1.2 mg/dL (0.55-1.02); Calcium 8.8 mg/dL (8.5-10.1); Chloride 103 mmol/L (98-107); Estimated GFR 49.92 (mL/min/1.73m2); FREE T4 0.47 ng/dL (0.76-1.46); Glucose 106 mg/dL (74-106); Potassium 4.8 mmol/L (3.5-5.1); Sodium 139 mmol/L (136-145); Total Protein 6.9 g/dL (6.4-8.2)
[2023-01-03] MEDS: Normal Saline Flush 10 ML SYR IVP (10:13)
[2023-01-03 10:33] LABS: TSH 124.89 uIU/mL (0.36-3.74)
[2023-01-07] MEDS: Normal Saline Flush 10 ML SYR IVP (12:30)
[2023-01-07] MEDS: Heparin 500 UNITS/5 ML SYRINGE IV (12:30)
[2023-01-07] MEDS: Normal Saline 500 ML 250 ML IV (12:30)
== END 2023-01-11 23:59 | disposition home or self-care (01) ==
LOC: INF 00:21
PROVIDERS: PCP Registered Nurse; Visit Provider Internal Medicine Hematology & Oncology
DX: C02.9 Malignant neoplasm of tongue, unspecified (principal); Z79.899 Other long term (current) drug therapy
CPT/HCPCS: 36591; 80053; 96360; 96361; 96365; 96366; 96374; 96523; 84436; 84439; 84443; 85025; J2405

== ENCOUNTER 2023-01-23 04:07 | Outpatient (RCR) | payer MEDICARE, SELFPAY ==
[2023-01-12 00:15] VITALS: BP 108/44; PULSE 85; RESP 16; TEMP 36.5
[2023-01-23] MEDS: Normal Saline Flush 10 ML SYR IVP (09:15)
[2023-01-23 09:38] LABS: Abs Immature Grans 0.09 10^3/uL (0.0-0.06); Absolute Basophil Count 0.05 10^3/uL (0.0-0.2); Absolute Eosinophil Count 0.07 10^3/uL (0.0-0.7); Absolute Lymphocyte Count 0.69 10^3/uL (1.2-3.4); Absolute Neutrophil Count 4.69 10^3/uL (1.2-6.7); Basophils % 0.8; Eosinophils % 1.1; HCT 25.3 % (36.0-46.0); HGB 8.3 g/dL (11.2-15.7); Immature Grans % 1.4; MCHC 32.8 % (32.0-36.0); MCV 104 fL (80-95); MPV 9.3 fL (8.0-11.0); Monocytes % 11.1; Neutrophils % 74.6; Platelet Count 282 10^3/uL (130-400); RBC 2.44 10^6/uL (3.93-5.22); RDW 18.5 % (11.7-14.6); RDW-SD 69.5 fL; WBC 6.29 10^3/uL (4.4-10.8)
[2023-01-23 10:02] LABS: ALT 71 U/L (14-59); AST 86 U/L (15-37); Albumin 3.4 g/dL (3.4-5.0); Alkaline Phosphatase 147 U/L (46-116); Anion Gap 4.3 mmol/L (3-11); BUN 41 mg/dL (7-18); Bilirubin, Total 0.3 mg/dL (0.2-1.0); CO2 30.7 mmol/L (21.0-32.0); CREATININE 1.1 mg/dL (0.55-1.02); Calcium 8.8 mg/dL (8.5-10.1); Chloride 100 mmol/L (98-107); Estimated GFR 55.42 (mL/min/1.73m2); FREE T4 0.37 ng/dL (0.76-1.46); Glucose 96 mg/dL (74-106); Potassium 4.6 mmol/L (3.5-5.1); Sodium 135 mmol/L (136-145); Total Protein 6.3 g/dL (6.4-8.2)
[2023-01-23 10:31] LABS: TSH 134.33 uIU/mL (0.36-3.74)
== END 2023-02-10 23:59 | disposition home or self-care (01) ==
LOC: INF 04:07
PROVIDERS: PCP Registered Nurse; Visit Provider Internal Medicine Hematology & Oncology
DX: Z79.899 Other long term (current) drug therapy (principal); C02.9 Malignant neoplasm of tongue, unspecified; Z45.2 Encounter for adjustment and management of vascular access device
CPT/HCPCS: 36591; 80053; 84439; 84443; 85025

== ENCOUNTER → 2023-03-02 13:51 | Outpatient (BNVA) | payer MEDICARE, SELFPAY | PROVIDERS: PCP Registered Nurse; Referring Provider Registered Nurse; Visit Provider Psychiatry & Neurology Neurology | DX: I69.331 Monoplegia of upper limb following cerebral infarction affecting right dominant side (principal); I69.392 Facial weakness following cerebral infarction; I70.8 Atherosclerosis of other arteries; Z79.82 Long term (current) use of aspirin | CPT/HCPCS: 99205 ==

== ENCOUNTER 2023-03-13 01:53 | Outpatient (RCR) | payer MEDICARE, SELFPAY ==
[2023-02-11 00:07] VITALS: BP 108/44; PULSE 85; RESP 16; TEMP 36.5
[2023-02-20] MEDS: Normal Saline Flush 10 ML SYR IVP (13:15)
[2023-02-20 13:53] LABS: Abs Immature Grans 0.06 10^3/uL (0.0-0.06); Absolute Basophil Count 0.03 10^3/uL (0.0-0.2); Absolute Eosinophil Count 0.16 10^3/uL (0.0-0.7); Absolute Lymphocyte Count 0.44 10^3/uL (1.2-3.4); Absolute Monocyte Count 0.64 10^3/uL (0.1-0.8); Basophils % 0.2; Eosinophils % 1.3; HCT 25.5 % (36.0-46.0); HGB 8.1 g/dL (11.2-15.7); Immature Grans % 0.5; Lymphocytes % 3.5; MCH 34.5 pg (27.0-33.0); MCHC 31.8 % (32.0-36.0); MCV 109 fL (80-95); MPV 9.3 fL (8.0-11.0); Monocytes % 5.1; Neutrophils % 89.4; Platelet Count 220 10^3/uL (130-400); RBC 2.35 10^6/uL (3.93-5.22); RDW 19.1 % (11.7-14.6); RDW-SD 74.4 fL
[2023-02-20 13:59] LABS: Absolute Neutrophil Count 11.26 10^3/uL (1.2-6.7)
[2023-02-20 14:21] LABS: ALT 12 U/L (14-59); AST 25 U/L (15-37); Albumin 3.3 g/dL (3.4-5.0); Alkaline Phosphatase 105 U/L (46-116); Anion Gap 8.1 mmol/L (3-11); BUN 35 mg/dL (7-18); Bilirubin, Total 0.3 mg/dL (0.2-1.0); CO2 28.9 mmol/L (21.0-32.0); Calcium 8.9 mg/dL (8.5-10.1); Chloride 103 mmol/L (98-107); Estimated GFR 62.13 (mL/min/1.73m2); FREE T4 1.07 ng/dL (0.76-1.46); Glucose 100 mg/dL (74-106); Potassium 4.4 mmol/L (3.5-5.1); Sodium 140 mmol/L (136-145); TSH 28.12 uIU/mL (0.36-3.74); Total Protein 6.3 g/dL (6.4-8.2)
== END 2023-03-13 23:59 | disposition home or self-care (01) ==
LOC: INF 01:53
PROVIDERS: PCP Registered Nurse; Visit Provider Internal Medicine Hematology & Oncology
DX: Z79.899 Other long term (current) drug therapy (principal); C02.9 Malignant neoplasm of tongue, unspecified; Z45.2 Encounter for adjustment and management of vascular access device
CPT/HCPCS: 36591; 80053; 84439; 84443; 85025

== ENCOUNTER 2023-04-03 04:21 | Outpatient (RCR) | payer MEDICARE, SELFPAY ==
[2023-03-14 00:12] VITALS: BP 108/44; PULSE 85; RESP 16; TEMP 36.5
[2023-03-14] MEDS: Normal Saline Flush 10 ML SYR IVP (12:30)
[2023-03-14 12:32] LABS: Abs Immature Grans 0.03 10^3/uL (0.0-0.06); Absolute Basophil Count 0.02 10^3/uL (0.0-0.2); Absolute Eosinophil Count 0.07 10^3/uL (0.0-0.7); Absolute Lymphocyte Count 0.89 10^3/uL (1.2-3.4); Absolute Monocyte Count 0.66 10^3/uL (0.1-0.8); Absolute Neutrophil Count 7.05 10^3/uL (1.2-6.7); Basophils % 0.2; Eosinophils % 0.8; HCT 31.1 % (36.0-46.0); Immature Grans % 0.3; Lymphocytes % 10.2; MCH 34.6 pg (27.0-33.0); MCHC 32.2 % (32.0-36.0); MCV 108 fL (80-95); MPV 9.6 fL (8.0-11.0); Monocytes % 7.6; Neutrophils % 80.9; Platelet Count 242 10^3/uL (130-400); RBC 2.89 10^6/uL (3.93-5.22); RDW 16.1 % (11.7-14.6); RDW-SD 64.1 fL; WBC 8.72 10^3/uL (4.4-10.8)
[2023-03-14 12:54] LABS: ALT 33 U/L (14-59); AST 19 U/L (15-37); Albumin 3.5 g/dL (3.4-5.0); Alkaline Phosphatase 108 U/L (46-116); Anion Gap 7.1 mmol/L (3-11); BUN 39 mg/dL (7-18); Bilirubin, Total 0.3 mg/dL (0.2-1.0); CO2 29.9 mmol/L (21.0-32.0); CREATININE 0.9 mg/dL (0.55-1.02); Chloride 103 mmol/L (98-107); Estimated GFR 70.51 (mL/min/1.73m2); FREE T4 1.04 ng/dL (0.76-1.46); Glucose 91 mg/dL (74-106); Potassium 3.9 mmol/L (3.5-5.1); Sodium 140 mmol/L (136-145); Total Protein 6.7 g/dL (6.4-8.2)
[2023-04-03] MEDS: Normal Saline Flush 10 ML SYR IVP (10:18)
[2023-04-03 10:40] LABS: Abs Immature Grans 0.02 10^3/uL (0.0-0.06); Absolute Basophil Count 0.03 10^3/uL (0.0-0.2); Absolute Eosinophil Count 0.08 10^3/uL (0.0-0.7); Absolute Lymphocyte Count 0.93 10^3/uL (1.2-3.4); Absolute Monocyte Count 0.69 10^3/uL (0.1-0.8); Absolute Neutrophil Count 6.01 10^3/uL (1.2-6.7); Basophils % 0.4; HCT 30.3 % (36.0-46.0); HGB 9.8 g/dL (11.2-15.7); Immature Grans % 0.3; MCHC 32.3 % (32.0-36.0); MCV 105 fL (80-95); MPV 9.8 fL (8.0-11.0); Monocytes % 8.9; Neutrophils % 77.4; Platelet Count 264 10^3/uL (130-400); RBC 2.88 10^6/uL (3.93-5.22); RDW 15.3 % (11.7-14.6); RDW-SD 58.9 fL; WBC 7.76 10^3/uL (4.4-10.8)
[2023-04-03 11:03] LABS: ALT 44 U/L (14-59); AST 28 U/L (15-37); Albumin 3.3 g/dL (3.4-5.0); Alkaline Phosphatase 102 U/L (46-116); Anion Gap 7.8 mmol/L (3-11); BUN 36 mg/dL (7-18); Bilirubin, Total 0.3 mg/dL (0.2-1.0); CO2 29.2 mmol/L (21.0-32.0); CREATININE 0.8 mg/dL (0.55-1.02); Calcium 9.2 mg/dL (8.5-10.1); Chloride 101 mmol/L (98-107); Estimated GFR 81.21 (mL/min/1.73m2); Glucose 90 mg/dL (74-106); Sodium 138 mmol/L (136-145); TSH 12.44 uIU/mL (0.36-3.74); Total Protein 6.9 g/dL (6.4-8.2)
== END 2023-04-13 23:59 | disposition home or self-care (01) ==
LOC: INF 04:21
PROVIDERS: PCP Registered Nurse; Visit Provider Internal Medicine Hematology & Oncology
DX: C02.9 Malignant neoplasm of tongue, unspecified (principal); Z79.899 Other long term (current) drug therapy; Z45.2 Encounter for adjustment and management of vascular access device
CPT/HCPCS: 36591; 80053; 96523; 84439; 84443; 85025

== ENCOUNTER 2023-04-24 01:39 | Outpatient (RCR) | payer MEDICARE, SELFPAY ==
[2023-04-14 00:19] VITALS: BP 108/44; PULSE 85; RESP 16; TEMP 36.5
[2023-04-24] MEDS: Normal Saline Flush 10 ML SYR IVP (13:19)
[2023-04-24 13:32] LABS: Abs Immature Grans 0.02 10^3/uL (0.0-0.06); Absolute Basophil Count 0.02 10^3/uL (0.0-0.2); Absolute Eosinophil Count 0.07 10^3/uL (0.0-0.7); Absolute Lymphocyte Count 0.62 10^3/uL (1.2-3.4); Absolute Monocyte Count 0.45 10^3/uL (0.1-0.8); Basophils % 0.3; Eosinophils % 1.1; HCT 29.7 % (36.0-46.0); HGB 9.7 g/dL (11.2-15.7); Immature Grans % 0.3; MCHC 32.7 % (32.0-36.0); MCV 104 fL (80-95); MPV 10.7 fL (8.0-11.0); Monocytes % 7.3; Platelet Count 215 10^3/uL (130-400); RBC 2.85 10^6/uL (3.93-5.22); RDW 15.6 % (11.7-14.6); RDW-SD 59.3 fL; WBC 6.18 10^3/uL (4.4-10.8)
[2023-04-24 14:01] LABS: ALT 38 U/L (14-59); AST 24 U/L (15-37); Albumin 3.4 g/dL (3.4-5.0); Alkaline Phosphatase 125 U/L (46-116); Anion Gap 9.9 mmol/L (3-11); BUN 50 mg/dL (7-18); Bilirubin, Total 0.3 mg/dL (0.2-1.0); CO2 27.1 mmol/L (21.0-32.0); CREATININE 1.1 mg/dL (0.55-1.02); Calcium 8.8 mg/dL (8.5-10.1); Chloride 103 mmol/L (98-107); Estimated GFR 55.42 (mL/min/1.73m2); Glucose 165 mg/dL (74-106); Potassium 3.3 mmol/L (3.5-5.1); Sodium 140 mmol/L (136-145); TSH 1.52 uIU/mL (0.36-3.74); Total Protein 6.8 g/dL (6.4-8.2)
== END 2023-05-13 23:59 | disposition home or self-care (01) ==
LOC: INF 01:39
PROVIDERS: PCP Registered Nurse; Visit Provider Internal Medicine Hematology & Oncology
DX: C02.9 Malignant neoplasm of tongue, unspecified (principal); Z79.899 Other long term (current) drug therapy; Z45.2 Encounter for adjustment and management of vascular access device
CPT/HCPCS: 36591; 80053; 84439; 84443; 85025

== ENCOUNTER → 2023-05-04 14:07 | Outpatient (BNVA) | payer MEDICARE, SELFPAY | PROVIDERS: PCP Registered Nurse; Referring Provider Registered Nurse; Visit Provider Psychiatry & Neurology Neurology | DX: I69.392 Facial weakness following cerebral infarction (principal); Z79.01 Long term (current) use of anticoagulants; Z79.82 Long term (current) use of aspirin; R79.1 Abnormal coagulation profile; R79.89 Other specified abnormal findings of blood chemistry | CPT/HCPCS: 99214 ==

== ENCOUNTER 2023-06-05 03:23 | Outpatient (RCR) | payer MEDICARE, SELFPAY ==
[2023-05-14 00:16] VITALS: BP 108/44; PULSE 85; RESP 16; TEMP 36.5
[2023-05-15] MEDS: Normal Saline Flush 10 ML SYR IVP (09:59)
[2023-05-15 10:10] LABS: Abs Immature Grans 0.05 10^3/uL (0.0-0.06); Absolute Basophil Count 0.03 10^3/uL (0.0-0.2); Absolute Eosinophil Count 0.12 10^3/uL (0.0-0.7); Absolute Lymphocyte Count 0.49 10^3/uL (1.2-3.4); Absolute Neutrophil Count 8.46 10^3/uL (1.2-6.7); Basophils % 0.3; Eosinophils % 1.2; HCT 29.1 % (36.0-46.0); HGB 9.4 g/dL (11.2-15.7); Immature Grans % 0.5; MCHC 32.3 % (32.0-36.0); MCV 102 fL (80-95); MPV 10.3 fL (8.0-11.0); Monocytes % 7.1; Neutrophils % 85.9; Platelet Count 215 10^3/uL (130-400); RBC 2.85 10^6/uL (3.93-5.22); RDW 16.1 % (11.7-14.6); RDW-SD 59.9 fL; WBC 9.85 10^3/uL (4.4-10.8)
[2023-05-15 10:41] LABS: ALT 42 U/L (14-59); AST 32 U/L (15-37); Alkaline Phosphatase 102 U/L (46-116); Anion Gap 8.7 mmol/L (3-11); BUN 38 mg/dL (7-18); Bilirubin, Total 0.4 mg/dL (0.2-1.0); CO2 26.3 mmol/L (21.0-32.0); CREATININE 0.9 mg/dL (0.55-1.02); Calcium 9.1 mg/dL (8.5-10.1); Chloride 101 mmol/L (98-107); Estimated GFR 70.51 (mL/min/1.73m2); FREE T4 0.96 ng/dL (0.76-1.46); Glucose 122 mg/dL (74-106); Potassium 3.4 mmol/L (3.5-5.1); Sodium 136 mmol/L (136-145); TSH 8.26 uIU/mL (0.36-3.74); Total Protein 6.6 g/dL (6.4-8.2)
[2023-05-29 12:40] LABS: Abs Immature Grans 0.02 10^3/uL (0.0-0.06); Absolute Basophil Count 0.02 10^3/uL (0.0-0.2); Absolute Eosinophil Count 0.17 10^3/uL (0.0-0.7); Absolute Lymphocyte Count 0.38 10^3/uL (1.2-3.4); Absolute Monocyte Count 0.56 10^3/uL (0.1-0.8); Basophils % 0.4; Eosinophils % 3.1; HCT 26.4 % (36.0-46.0); HGB 8.2 g/dL (11.2-15.7); Immature Grans % 0.4; MCH 31.9 pg (27.0-33.0); MCHC 31.1 % (32.0-36.0); MCV 103 fL (80-95); MPV 10.3 fL (8.0-11.0); Monocytes % 10.3; Neutrophils % 78.8; Platelet Count 227 10^3/uL (130-400); RBC 2.57 10^6/uL (3.93-5.22); RDW 16.4 % (11.7-14.6); WBC 5.45 10^3/uL (4.4-10.8)
[2023-05-29 12:59] LABS: ALT 15 U/L (14-59); AST 35 U/L (15-37); Albumin 2.8 g/dL (3.4-5.0); Alkaline Phosphatase 167 U/L (46-116); Anion Gap 6.4 mmol/L (3-11); BUN 47 mg/dL (7-18); Bilirubin, Total 0.3 mg/dL (0.2-1.0); CO2 28.6 mmol/L (21.0-32.0); CREATININE 1.2 mg/dL (0.55-1.02); Calcium 9.6 mg/dL (8.5-10.1); Chloride 102 mmol/L (98-107); Estimated GFR 49.92 (mL/min/1.73m2); Glucose 180 mg/dL (74-106); Magnesium 2.3 mg/dL (1.8-2.4); Potassium 3.7 mmol/L (3.5-5.1); Sodium 137 mmol/L (136-145); Total Protein 6.8 g/dL (6.4-8.2)
[2023-05-29] MEDS: Normal Saline Flush 10 ML SYR IVP (13:24)
[2023-06-05] MEDS: Normal Saline Flush 10 ML SYR IVP (14:17)
[2023-06-05 14:41] LABS: Abs Immature Grans 0.03 10^3/uL (0.0-0.06); Absolute Basophil Count 0.03 10^3/uL (0.0-0.2); Absolute Eosinophil Count 0.07 10^3/uL (0.0-0.7); Absolute Lymphocyte Count 0.48 10^3/uL (1.2-3.4); Absolute Monocyte Count 0.41 10^3/uL (0.1-0.8); Absolute Neutrophil Count 5.28 10^3/uL (1.2-6.7); Basophils % 0.5; Eosinophils % 1.1; HCT 26.5 % (36.0-46.0); HGB 8.6 g/dL (11.2-15.7); Immature Grans % 0.5; Lymphocytes % 7.6; MCH 32.2 pg (27.0-33.0); MCHC 32.5 % (32.0-36.0); MCV 99 fL (80-95); MPV 9.7 fL (8.0-11.0); Monocytes % 6.5; Neutrophils % 83.8; Platelet Count 258 10^3/uL (130-400); RBC 2.67 10^6/uL (3.93-5.22); RDW 15.4 % (11.7-14.6); RDW-SD 55.3 fL
[2023-06-05 14:54] LABS: ALT 98 U/L (14-59); AST 39 U/L (15-37); Alkaline Phosphatase 197 U/L (46-116); Anion Gap 12.2 mmol/L (3-11); BUN 48 mg/dL (7-18); Bilirubin, Total 0.2 mg/dL (0.2-1.0); CO2 25.8 mmol/L (21.0-32.0); CREATININE 1.9 mg/dL (0.55-1.02); Calcium 9.5 mg/dL (8.5-10.1); Chloride 99 mmol/L (98-107); Estimated GFR 28.76 (mL/min/1.73m2); Glucose 104 mg/dL (74-106); Magnesium 1.8 mg/dL (1.8-2.4); Potassium 3.6 mmol/L (3.5-5.1); Sodium 137 mmol/L (136-145); Total Protein 6.9 g/dL (6.4-8.2)
== END 2023-06-13 23:59 | disposition home or self-care (01) ==
LOC: INF 03:23
PROVIDERS: PCP Registered Nurse; Visit Provider Internal Medicine Hematology & Oncology
DX: C02.9 Malignant neoplasm of tongue, unspecified (principal); Z45.2 Encounter for adjustment and management of vascular access device
CPT/HCPCS: 36591; 80053; 83735; 84439; 84443; 85025